=== PATIENT | male | born 1940 | race Caucasian/White ===

== ENCOUNTER → 2016-05-04 | Outpatient (CLI) | payer MEDICARE ==
[2016-05-04 09:30] LABS: BASO % 0.2 %; BASO ABS # 0.02 K/uL (0-0.2); COMPLETE YES; HEMATOCRIT 35.9 % (42-52); IG% 0.3 %; LYMPH % 15.6 %; LYMPH ABS # 1.44 K/uL (1.2-3.4); MEAN CELL VOLUME 87.3 fL (80-100); MEAN CORPUSCULAR HEMOGLOBIN 30.2 pg (25-34); MEAN CORPUSCULAR HGB CONC 34.5 g/dl (32-36); MEAN PLATELET VOLUME 9.2 fL (7.4-10.4); MONO % 11.2 %; NEUT % 71.7 %; PLATELET COUNT 247 K/uL (130-400); RED BLOOD COUNT 4.11 M/uL (4.7-6.1); WHITE BLOOD COUNT 9.21 K/uL (4.8-10.8)
[2016-05-04 09:33] LABS: URINE APPEARANCE CLEAR (CLEAR); URINE BILIRUBIN NEG (NEG); URINE COLOR DK YELLOW; URINE EPITHELIAL CELL AUTO 0-5 /lpf (0-5); URINE NITRITE NEG (NEG); URINE PH 5.5 (4.5-7.5); URINE SPECIFIC GRAVITY 1.019 (1.000-1.030); UROBILINOGEN NEG (NEG)
[2016-05-04 09:37] LABS: MANUAL MICROSCOPIC REQUIRED? NO; REVIEW REQ? NO
[2016-05-04 10:10] LABS: ESTIMATED AVERAGE GLUCOSE 146 mg/dl; HA1C FLAG Normal (Normal)
[2016-05-04 10:19] LABS: ALT/SGPT 28 U/L (12-78); AST/SGOT 24 U/L (15-37); BLOOD UREA NITROGEN 23 mg/dl (7-18); BUN/CREATININE RATIO 19.3 (10-20); CALCIUM 9.8 mg/dl (8.5-10.1); CARBON DIOXIDE 24 mmol/L (21-32); CHLORIDE 100 mmol/L (98-107); CHOLESTEROL 108 mg/dl (0-200); GLUCOSE 96 mg/dl (70-99); POTASSIUM 4.4 mmol/L (3.5-5.1); SODIUM 134 mmol/L (136-145); TRIGLYCERIDES 143 mg/dl (0-150); VERY LOW DENSITY LIPOPROT CALC 29 mg/dl
[2016-05-04 10:35] LABS: HDL CHOLESTEROL 36 mg/dl; LDL CHOLESTEROL CALCULATED 43 mg/dl; URIC ACID 4.6 mg/dl (2.6-7.2)
== END | disposition home or self-care (01) ==
LOC: C.LAB1850 08:51
PROVIDERS: ATTEND Internal Medicine
DX: E11.9 Type 2 diabetes mellitus without complications (principal)

== ENCOUNTER → 2016-08-11 | Outpatient (CLI) | payer MEDICARE ==
[~2016-08-11] MED LIST: ALLO300T2 PO; ASPI-560 PO; ATOR-24 PO; B-COTAB18 PO; DILT-119 PO; EFF/375 PO; GLIP-199 PO; HYDR25TA4 PO; LISI20TA3 PO; METF1000 PO; MULT-506 PO; OMEG10007 PO; PRLSR20 PO; [UNRECOGNIZED DRUG - CODE] SL
[2016-08-11 10:16] LABS: ESTIMATED AVERAGE GLUCOSE 143 mg/dl; HA1C FLAG Normal (Normal)
== END | disposition home or self-care (01) ==
LOC: C.LAB1850 09:15
PROVIDERS: ATTEND Internal Medicine
DX: E11.9 Type 2 diabetes mellitus without complications (principal)

== ENCOUNTER → 2016-08-16 | Outpatient (CLI) | payer MEDICARE ==
--- NOTE | 2016-08-16 15:09 | DIAGNOSTIC IMAGING REPORT ---
CHEST 2 VIEWS ROUTINE CLINICAL HISTORY: E11.9 Type 2 diabetes mellitus dyspnea COMPARISON STUDY: No previous studies for comparison. FINDINGS: Mild cardiomegaly. Minimal infiltrative change right lower lobe. Lungs otherwise appear clear. IMPRESSION: Mild cardiomegaly. Minimal infiltrative change medial aspect right lower lobe versus atelectatic change. Electronically signed by: Chito Foy M.D. 08/16/2016 3:09 PM Dictated Date/Time: 08/16/2016 3:08 PM
== END | disposition home or self-care (01) ==
LOC: C.RAD1850 14:42
PROVIDERS: ATTEND Internal Medicine
DX: E11.9 Type 2 diabetes mellitus without complications (principal)

== ENCOUNTER → 2016-11-03 | Outpatient (CLI) | payer MEDICARE ==
[2016-11-03 09:35] LABS: BASO % 0.3 %; BASO ABS # 0.02 K/uL (0-0.2); COMPLETE YES; EOS % 1.1 %; HEMATOCRIT 35.2 % (42-52); IG% 0.2 %; LYMPH ABS # 1.62 K/uL (1.2-3.4); MEAN CELL VOLUME 90.5 fL (80-100); MEAN CORPUSCULAR HEMOGLOBIN 30.1 pg (25-34); MEAN CORPUSCULAR HGB CONC 33.2 g/dl (32-36); MEAN PLATELET VOLUME 8.9 fL (7.4-10.4); MONO % 11.4 %; PLATELET COUNT 271 K/uL (130-400); RED BLOOD COUNT 3.89 M/uL (4.7-6.1); WHITE BLOOD COUNT 6.48 K/uL (4.8-10.8)
[2016-11-03 09:46] LABS: MANUAL MICROSCOPIC REQUIRED? YES; URINE APPEARANCE CLEAR (CLEAR); URINE BILIRUBIN NEG (NEG); URINE COLOR YELLOW; URINE NITRITE NEG (NEG); UROBILINOGEN NEG (NEG)
[2016-11-03 09:50] LABS: REVIEW REQ? NO
[2016-11-03 09:52] LABS: ESTIMATED AVERAGE GLUCOSE 137 mg/dl; HA1C FLAG Normal (Normal)
[2016-11-03 09:58] LABS: ALT/SGPT 28 U/L (12-78); AST/SGOT 24 U/L (15-37); BLOOD UREA NITROGEN 22 mg/dl (7-18); CALCIUM 9.8 mg/dl (8.5-10.1); CARBON DIOXIDE 26 mmol/L (21-32); CHLORIDE 103 mmol/L (98-107); CHOLESTEROL 98 mg/dl (0-200); GLUCOSE 72 mg/dl (70-99); POTASSIUM 4.4 mmol/L (3.5-5.1); SODIUM 136 mmol/L (136-145); TRIGLYCERIDES 124 mg/dl (0-150); URIC ACID 3.9 mg/dl (2.6-7.2); VERY LOW DENSITY LIPOPROT CALC 25 mg/dl
[2016-11-03 10:09] LABS: CHOLESTEROL/HDL RATIO 2.9; HDL CHOLESTEROL 34 mg/dl; LDL CHOLESTEROL CALCULATED 39 mg/dl
[2016-11-03 10:50] LABS: URINE BACTERIA NEG (NEG); URINE RBC 0-4 /hpf (0-4); URINE WBC 0 /hpf (0-5)
== END | disposition home or self-care (01) ==
LOC: C.LAB1850 08:42
PROVIDERS: ATTEND Internal Medicine
DX: E11.9 Type 2 diabetes mellitus without complications (principal)

== ENCOUNTER → 2016-11-16 | Outpatient (CLI) | payer MEDICARE ==
[2016-11-16 15:43] LABS: HEMATOCRIT 35.4 % (42-52)
[2016-11-16 16:14] LABS: FERRITIN 22.8 ng/ml (8.0-388.0)
--- NOTE | 2016-11-24 09:14 | CODING QUERY MEDICAL NECESSITY ---
SUPPORTING DIAGNOSIS NEEDED A supporting diagnosis is required for the test/procedure performed on this patient in order for us to be reimbursed by the patient's insurance. Please provide a supporting diagnosis for the following test/procedure listed below next to the test name along with your signature. *If there is no additional diagnosis for this patient that would support the following test/procedure please document that below next to the test/procedure. Test(s)/Procedure(s) that require a supporting diagnosis: * VITAMIN B12 DIAGNOSIS: Provider Signature: Date: Thank you Carey Walker [facility] Once completed, please kindly fax back to [phone] For questions please call [phone]
== END | disposition home or self-care (01) ==
LOC: C.LAB1850 14:26
PROVIDERS: ATTEND Internal Medicine
DX: D64.9 Anemia, unspecified (principal)

== ENCOUNTER → 2016-11-22 | Outpatient (CLI) | payer MEDICARE | END | disposition home or self-care (01) | LOC: C.LABSPEC 11-22 15:06 | PROVIDERS: ATTEND Internal Medicine | DX: D64.9 Anemia, unspecified (principal) ==

== ENCOUNTER → 2017-03-08 | Day surgery (SDC) | payer MEDICARE ==
[2017-02-28 15:40] VITALS: Ht 172.7 cm; Wt 81.8 kg
[~2017-03-08] VITALS: Ht 172.7 cm; Wt 81.8 kg
[~2017-03-08] MED LIST changes: +LIDOCAINE HCL 2% 2 ML VIAL (20MG/ML) ONE; +PROPOFOL IV EMULSION 10 MG/ML 20 ML VIAL IV ONE; +SODIUM CHLORIDE 0.9% 500ML 500 ML IV ONE
[2017-03-08 08:38] VITALS: TEMP 36.8
--- NOTE | 2017-03-08 08:51 | Endo History and Physical ---
History & Physical Date of Service: Mar 08, 2017. Chief Complaint: anemia Referring Physician: Rani MCCORMACK History of Present Illness 76 yo CM who presents for colonoscopy secondary to anemia. Past Surgical History Hx Cardiac Surgery: Yes (HEART CATH X 3 (4 STENTS PLACED)) Hx Internal Defibrillator: No Hx Pacemaker: No Hx Abdominal Surgery: No Hx of Implantable Prosthesis: No Hx Post-Op Nausea and Vomiting: No Hx Cancer Surgery: No Hx Thoracic Surgery: No Hx Orthopedic: No Hx Urinary Tract Surgery: No Family History None Social History Smoking Status: Current Every Day Smoker Hx Substance Use: No Hx Alcohol Use: No Allergies Coded Allergies: NO KNOWN DRUG ALLERGIES (Verified Allergy, Unknown, ., 02/28/17) Current Medications Reported Home Medications Medications Dose Route/Sig Max Daily Dose Days Date Category Prilosec (Omeprazole) 20 Mg Capcr 20 Mg PO QPM 02/28/17 Reported Vitamin B Complex (B-Complex Vitamins) 1 Tab Tab 1 Tab PO QAM 02/28/17 Reported Effexor (Venlafaxine Hcl) 37.5 Mg Tab 37.5 Mg PO QAM 02/28/17 Reported Nitromist (Nitroglycerin) 400 Mcg/[place] Aer 1 Dose SL DIRECTED PRN 02/28/17 Reported Glucophage (Metformin Hcl) 1,000 Mg Tab 1,000 Mg PO BID 02/28/17 Reported Prinivil (Lisinopril) 20 Mg Tab 20 Mg PO QAM 02/28/17 Reported Hctz (Hydrochlorothiazide) 25 Mg Tab 25 Mg PO QAM 02/28/17 Reported Glipizide Er (Glipizide) 10 Mg Tab 1 Tab PO BID 02/28/17 Reported [place]-3 (Fish Oil) 1 Ea Cap 1 Cap PO QPM 02/28/17 Reported Ecotrin (Aspirin) 325 Mg Tab 1 Tab PO QAM 02/28/17 Reported Tiazac (Diltiazem HCl) 360 Mg Capcr 360 Mg PO HS 02/28/17 Reported Multivitamin (Multivitamins) Tab 1 Tab PO QAM 02/28/17 Reported Lipitor (Atorvastatin Calcium) 40 Mg Tab 40 Mg PO QAM 02/28/17 Reported Zyloprim (Allopurinol) 300 Mg Tab 300 Mg PO QAM 02/28/17 Reported Vital Signs Weight (Kilograms): 81.82 Height (Feet): 5 Height (Inches): 8 Date Time Temp Pulse Resp B/P (MAP) Pulse Ox O2 Delivery O2 Flow Rate FiO2 03/08/17 08:38 36.8 100 24 163/91 (115) 97 Room Air Physical Exam General Appearance: WD/WN, no apparent distress Respiratory/Chest: Auscultation: breath sounds normal Cardiovascular: Heart Auscultation: RRR Abdomen: Bowel Sounds: normal Inspection & Palpation: soft, non-distended, no tenderness, guarding & rebound Assessment and Plan Assessment: 76 yo CM who presents for colonoscopy secondary to anemia. Plan: Proceed with colonoscopy.
--- NOTE | 2017-03-08 09:41 | Discharge Instructions ---
Endoscopy Patient Instructions Date / Procedure(s) Performed Mar 08, 2017. Colonoscopy Allergy Information Coded Allergies: NO KNOWN DRUG ALLERGIES (Verified Allergy, Unknown, ., 02/28/17) Discharge Date / Findings Mar 08, 2017. Diverticulosis Internal hemorrhoids Medication Instructions Stopped Medication(s): stopped Metformin on Tuesday,took ASA yesterday OK to resume all medications today as prescribed Reported Home Medications Medications Dose Route/Sig Max Daily Dose Days Date Category Prilosec (Omeprazole) 20 Mg Capcr 20 Mg PO QPM 02/28/17 Reported Vitamin B Complex (B-Complex Vitamins) 1 Tab Tab 1 Tab PO QAM 02/28/17 Reported Effexor (Venlafaxine Hcl) 37.5 Mg Tab 37.5 Mg PO QAM 02/28/17 Reported Nitromist (Nitroglycerin) 400 Mcg/[place] Aer 1 Dose SL DIRECTED PRN 02/28/17 Reported Glucophage (Metformin Hcl) 1,000 Mg Tab 1,000 Mg PO BID 02/28/17 Reported Prinivil (Lisinopril) 20 Mg Tab 20 Mg PO QAM 02/28/17 Reported Hctz (Hydrochlorothiazide) 25 Mg Tab 25 Mg PO QAM 02/28/17 Reported Glipizide Er (Glipizide) 10 Mg Tab 1 Tab PO BID 02/28/17 Reported [place]-3 (Fish Oil) 1 Ea Cap 1 Cap PO QPM 02/28/17 Reported Ecotrin (Aspirin) 325 Mg Tab 1 Tab PO QAM 02/28/17 Reported Tiazac (Diltiazem HCl) 360 Mg Capcr 360 Mg PO HS 02/28/17 Reported Multivitamin (Multivitamins) Tab 1 Tab PO QAM 02/28/17 Reported Lipitor (Atorvastatin Calcium) 40 Mg Tab 40 Mg PO QAM 02/28/17 Reported Zyloprim (Allopurinol) 300 Mg Tab 300 Mg PO QAM 02/28/17 Reported Provider Instructions Activity Restrictions - No exercising or heavy lifting for 24 hours. - Do not drink alcohol the day of the procedure. - Do not drive a car or operate machinery until the day after the procedure. - Do not make any important decisions or sign important papers in 24 hours after the procedure. Following Day: - Return to full activity which may include returning to work/school. Diet Start your diet with liquids and light foods (jello, soup, juice, toast). Then eat your usual diet if not nauseated. Treatment For Common After Affects For mild abdominal pain, bloating, or excessive gas: - Rest - Eat lightly - Lie on right side Follow-Up Information Follow-up with Rani MCCORMACK as scheduled Anesthesia Information What You Should Know You have had a procedure that required some medicine to reduce anxiety and discomfort. This treatment is called moderate sedation. After receiving the treatment, you may be sleepy, but you will be able to breathe on your own. The effects of the treatment may last for several hours. Follow these instructions along with Activity/Diet recommendations noted above: * Do NOT do anything where dizziness or clumsiness would be dangerous. * Rest quietly at home today, then you can be up and about tomorrow. * Have a responsible person stay with you the rest of today. * You may have had an I.V. today. If so, you may take the dressing off later today. Recommendations Call your doctor if: * Trouble breathing * Continuous vomiting for more than 24 hours * Temperature above 101 degrees * Severe abdominal pain or bloating * Pain not relieved by pain medicine ordered * There is increased drainage or redness from any incision * A large amount of rectal bleeding greater than 2-3 tablespoons. (If you had a polyp/s removed or have hemorrhoids, a small amount of blood - from the rectum is to be expected.) * You have any unanswered questions or concerns. IN THE EVENT OF A SERIOUS EMERGENCY, GO TO THE NEAREST EMERGENCY ROOM Your discharge instructions were prepared by provider Flex Hayes. Patient Instructions Signature Page Arvid High Patient (or Guardian) Signature/Date: I have read and understand the instructions given to me by my caregivers. Caregiver/RN/Doctor Signature/Date: The above-named patient and/or guardian has received patient instructions on this date. + Original Patient Signature Page (only) stays with chart. Please make copy for patient.
--- NOTE | 2017-03-08 09:45 | GI REPORT ---
Procedure Date: 03/08/2017 9:07 AM Procedure: Colonoscopy Indications: Iron deficiency anemia Medicines: Monitored Anesthesia Care Complications: No immediate complications. Estimated Blood Loss: Estimated blood loss: none. Procedure: Pre-Anesthesia Assessment: - Prior to the procedure, a History and Physical was performed, and patient medications and allergies were reviewed. The patient's tolerance of previous anesthesia was also reviewed. The risks and benefits of the procedure and the sedation options and risks were discussed with the patient. All questions were answered, and informed consent was obtained. Prior Anticoagulants: The patient has taken aspirin, last dose was 1 day prior to procedure. ASA Grade Assessment: III - A patient with severe systemic disease. After reviewing the risks and benefits, the patient was deemed in satisfactory condition to undergo the procedure. After I obtained informed consent, the scope was passed under direct vision. Throughout the procedure, the patient's blood pressure, pulse, and oxygen saturations were monitored continuously. The scope was introduced through the anus and advanced to the terminal ileum. The colonoscopy was performed without difficulty. The patient tolerated the procedure well. The quality of the bowel preparation was good. The terminal ileum, ileocecal valve, appendiceal orifice, and rectum were photographed. Findings: The perianal and digital rectal examinations were normal. Multiple small-mouthed diverticula were found in the sigmoid colon. Non-bleeding internal hemorrhoids were found during retroflexion. The hemorrhoids were small. Impression: - Diverticulosis in the sigmoid colon. - Non-bleeding internal hemorrhoids. - No specimens collected. Recommendation: - Resume previous diet. - Continue present medications. - No repeat colonoscopy due to age and the absence of advanced adenomas. - Return to primary care physician as previously scheduled. Flex Hayes DO 03/08/2017 9:45:07 AM This report has been signed electronically. Note Initiated On: 03/08/2017 9:07 AM I attest to the content of the Intraoperative Record and orders documented therein, exceptions below
[2017-03-08 10:02] VITALS: BP 158/81; PULSE 88; O2SAT 96
--- NOTE | 2017-03-08 10:02 | Anesthesiology Progress Note ---
Anesthesia Post Op Note Date & Time Mar 08, 2017 at 10:02 Vital Signs Pain Intensity: 0 Vital Signs Past 12 Hours Date Time Temp Pulse Resp B/P (MAP) Pulse Ox O2 Delivery O2 Flow Rate FiO2 03/08/17 09:50 173/89 (117) 03/08/17 09:48 110 20 160/110 (127) 97 Room Air 03/08/17 08:38 36.8 100 24 163/91 (115) 97 Room Air Notes Mental Status: alert / awake / arousable, participated in evaluation Pt Amnestic to Procedure: Yes Nausea / Vomiting: adequately controlled Pain: adequately controlled Airway Patency, RR, SpO2: stable & adequate BP & HR: stable & adequate Hydration State: stable & adequate Anesthetic Complications: no major complications apparent
== END | disposition home or self-care (01) ==
LOC: C.GI 08:06
PROVIDERS: ATTEND Internal Medicine
DX: K57.30 Diverticulosis of large intestine without perforation or abscess without bleeding (principal); K64.8 Other hemorrhoids; D50.9 Iron deficiency anemia, unspecified; F17.200 Nicotine dependence, unspecified, uncomplicated; Z79.84 Long term (current) use of oral hypoglycemic drugs; Z79.899 Other long term (current) drug therapy; Z95.5 Presence of coronary angioplasty implant and graft

== ENCOUNTER → 2017-04-28 | Outpatient (CLI) | payer MEDICARE ==
[~2017-04-28] MED LIST changes: -LIDOCAINE HCL 2% 2 ML VIAL (20MG/ML) ONE; -PROPOFOL IV EMULSION 10 MG/ML 20 ML VIAL IV ONE; -SODIUM CHLORIDE 0.9% 500ML 500 ML IV ONE
[2017-04-28 16:41] LABS: BASO % 0.3 %; BASO ABS # 0.02 K/uL (0-0.2); EOS % 1.2 %; EOS ABS # 0.08 K/uL (0-0.5); HEMATOCRIT 33.9 % (42-52); HEMOGLOBIN 11.3 g/dL (14.0-18.0); IG# 0.02 K/uL (0.00-0.02); LYMPH % 30.1 %; LYMPH ABS # 2.07 K/uL (1.2-3.4); MEAN CELL VOLUME 90.6 fL (80-100); MEAN CORPUSCULAR HEMOGLOBIN 30.2 pg (25-34); MEAN CORPUSCULAR HGB CONC 33.3 g/dl (32-36); MEAN PLATELET VOLUME 9.8 fL (7.4-10.4); MONO % 11.2 %; MONO ABS # 0.77 K/uL (0.11-0.59); NEUT % 56.9 %; NEUT ABS # 3.92 K/uL (1.4-6.5); PLATELET COUNT 249 K/uL (130-400); RED CELL DISTRIBUTION WIDTH CV 14.8 % (11.5-14.5); RED CELL DISTRIBUTION WIDTH SD 48.9 fL (36.4-46.3); WHITE BLOOD COUNT 6.88 K/uL (4.8-10.8)
[2017-04-28 17:05] LABS: BLOOD UREA NITROGEN 25 mg/dl (7-18); CALCIUM 9.2 mg/dl (8.5-10.1); CARBON DIOXIDE 25 mmol/L (21-32); CREATININE 1.29 mg/dl (0.60-1.40); GLUCOSE 163 mg/dl (70-99); SODIUM 134 mmol/L (136-145)
[2017-04-29 07:25] LABS: HEMOGLOBIN A1C 6.7 % (4.5-5.6)
== END | disposition home or self-care (01) ==
LOC: C.LAB1850 15:26
PROVIDERS: ATTEND Internal Medicine
DX: E11.9 Type 2 diabetes mellitus without complications (principal); I25.10 Atherosclerotic heart disease of native coronary artery without angina pectoris; D64.9 Anemia, unspecified

== ENCOUNTER → 2017-05-23 | Outpatient (CLI) | payer MEDICARE ==
[~2017-05-23] MED LIST changes: +IMDSR30 PO
--- NOTE | 2017-05-23 13:32 | DIAGNOSTIC IMAGING REPORT ---
TWO VIEW CHEST CLINICAL HISTORY: Exertional dyspnea. FINDINGS: PA and lateral chest radiographs are compared to study dated 08/16/2016. The heart is enlarged and there is atherosclerotic calcification of the thoracic aorta. The pulmonary vasculature is noncongested. There is mild chronic elevation of the right hemidiaphragm and bibasilar atelectasis. No airspace consolidation or pleural effusion is identified. There is no pneumothorax. The skeletal structures are osteopenic. The bony thorax appears intact. IMPRESSION: Cardiomegaly with no acute cardiopulmonary abnormality. Electronically signed by: Lorenzo Whitehead M.D. 05/23/2017 1:31 PM Dictated Date/Time: 05/23/2017 1:29 PM
== END | disposition home or self-care (01) ==
LOC: C.RAD1850 13:15
PROVIDERS: ATTEND Physician Assistant
DX: R06.02 Shortness of breath (principal); I51.7 Cardiomegaly

== ENCOUNTER → 2017-05-30 | Day surgery (SDC) | payer MEDICARE ==
[~2017-05-30] VITALS: Ht 172.7 cm; Wt 80.0 kg
[~2017-05-30] MED LIST changes: +FENTANYL CITRATE INJ 50 MCG/1 ML 2 ML VIAL ONE; +HEPARIN SOD (PORCINE) 1000 UNIT/ML 10 ML VIAL ONE; +MIDAZOLAM HCL 1 MG/ML 2ML VIAL ONE; +NITROGLYCERIN/D5W 100MCG/ML 20ML SYR ONE; +NiCARDipine HCL INJ 2.5 MG/ML 10 ML AMP ONE
[2017-05-30 07:20] VITALS: BP 169/75; PULSE 78; TEMP 36.8; O2SAT 98; Ht 172.7 cm; Wt 80.0 kg
--- NOTE | 2017-05-30 07:45 | History & Physical Bridge Note ---
H&P Re-Evaluation Bridge Note: I have examined the patient, reviewed the History & Physical and in the interval since the performance of the History & Physical I have noted the following changes of clinical significance: No changes noted
--- NOTE | 2017-05-30 07:47 | Pre Sedation Assessment ---
Pre Sedation Assessment General Date of Sedation: May 30, 2017. Vital Signs Past 12 Hours Date Time Temp Pulse Resp B/P (MAP) Pulse Ox O2 Delivery O2 Flow Rate FiO2 05/30/17 07:20 36.8 78 16 169/75 (106) 98 Room Air Review Cardiovascular: regular rate, rhythm, no edema Lungs: chest non-tender, lungs clear Pre-Sedation Airway Assessment Smoking Status: Current Every Day Smoker Hx of Sleep Apnea: No Hx of difficult intubation: No Short Thick Neck: No Thyro-mental Distance: > 3 Finger Breadths Oral Cavity: WNL Mallampati Classification: Class III ASA Classification: Class III NPO Status Date of Last Intake of Fluids: May 29, 2017 Date of Last Intake of Solids: May 29, 2017 Procedure Planning Contraindications for Sedation: None Current Medications Reviewed: Yes Notes The planned sedation has been discussed with the patient. Informed Consent was obtained. I have identified the patient, determined the appropriateness of sedation and have assessed the patient immediately prior to the procedure. All medicine(s) and interventions are by my order.
--- NOTE | 2017-05-30 08:32 | Post Sedation Assessment ---
Post Sedation Assessment General Date of Sedation May 30, 2017. Vital Signs: Vital Signs Past 12 Hours Date Time Temp Pulse Resp B/P (MAP) Pulse Ox O2 Delivery O2 Flow Rate FiO2 05/30/17 07:20 36.8 78 16 169/75 (106) 98 Room Air Post Procedure Recovery Score Activity: (2) Moves 4 extremities * Respiration: (2) Deep breath/cough Circulation: (2) +/-20% PreAnes Value Consciousness: (2) Fully Awake Oxygen Saturation: (2) > 92% On Room Air Post Anesthesia Score: 10 Discharge Sedation Level of Care: Fast Track Phase II Post Sedation Plan On clinical assessment, the patient appears to have tolerated the sedation without complications. Patient is recovering as anticipated. Patient will continue to be monitored by nursing and may be discharged when sedation discharge criteria are met per below protocol. Upon Completions of procedure and additional 15 minutes continue every 5 minute vital signs and the P.A.R. score; then discharge to a Phase I or Fast Track to Phase II per the following guidelines: * Discharge Patient to appropriate Phase II area if PAR is 8 or greater or return to pre- procedure baseline. The post - procedure orders will be as directed. * If PAR score is less than 8 or not return to pre-procedure baseline then patient will follow Phase I monitoring till PAR is reached for Phase II. The Phase I may be done in procedure room or may call to secure a Phase I area. * If naloxone or flumazenil are used for reversal, hold in Phase I for an additional 60 -120 minutes before discharge to Phase II. Please call the Sedation Physician to re-evaluate and complete post-note for discharge to Phase II area. Do NOT discharge from procedure sedation or Phase 1 until post- sedation evaluation note is complete by procedure /sedation MD Sedation Discharge Instructions to be given to the patient at discharge to home.
--- NOTE | 2017-05-30 09:32 | Cardiac Catheterization ---
Procedure Note Procedure Date May 30, 2017. Pre-Procedure Diagnosis Angina AUC Score 7 Post-Procedure Diagnosis Severe CAD, Normal Intracardiac Pressures Procedure(s) Performed Coronary Angiography, Left Heart Cath [employer] Coordinator(s) Manjindert Estimated Blood Loss 10 Medication(s) Fentanyl, Heparin, Nitroglycerin, Versed, Lidocaine 1% Summary of Findings Indication: Angina Access: 6Fr slender right radial artery Catheters: [place], Pigtail Findings: LM - Calcified, luminal irregularities LAD - Heavily calcified proximally, mid 30-40% diffuse disease; late-mid stent with 90% in-stent restenosis; apical segment luminal irregularities. Left to right septal collaterals to PDA. - moderate caliber 2nd diagonal with 20-30% ostial stenosis, widely patent proximal stent Circumflex - Moderate caliber, 20-30% ostial stenosis, mid to distal luminal irregularities. Gives of moderate caliber OM1 with minimal disease. Distal vessel gives off few epicardial collaterals to R-PLB. RCA - Dominant, heavily calcified, 99% late-proximal stenosis; 50% diffuse mid segment disease; competitive flow in distal segment LVEDP - 10 Arterial Closure: TR band Summary: 1. Severe 2 vessel coronary artery disease - 99% late-proximal stenosis; competitive flow in distal vessel from left to right collaterals - 90% late-mid LAD in-stent restenosis 2. Normal intracardiac filling pressure Recommendations: Currently only on 1 antianginal --> recommend maximizing anti-anginal therapy Start long acting nitrate Continued ASCVD risk factor modification Follow-up with cardiology in 2-3 weeks. 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
--- NOTE | 2017-05-30 09:36 | Discharge Instructions ---
Discharge Instructions Procedure Procedure Date: May 30, 2017. Reason for Visit: Sob Dr Chambers Doing. Discharge Discharge Date: May 30, 2017. Discharge Diagnosis: Coronary artery disease Last Recorded Wt (Kilograms): 80 Anesthesia Post Anesthesia Instructions: If you have had General Anesthesia or IV Sedation: * Do not drive today. * Resume driving when surgeon permits. * Do not make important decisions or sign legal documents today. * Call surgeon for: 1. Temperature elevations greater than 101 degrees F. 2. Uncontrollable pain. 3. Excessive bleeding. 4. Persistent nausea and vomiting. 5. Medication intolerance (nausea, vomiting or rash). * For nausea and vomiting use only clear liquids such as: tea, soda, bouillon until nausea subsides, then gradually increase diet as tolerated. * If you have any concerns or questions, call your surgeon's office. If physician is unavailable and it is an emergency, call 911 or go to the nearest emergency room. Instructions Activity Recommendations: limitations as noted below Recommended Home Diet: low sodium, low cholesterol Allergies: Coded Allergies: NO KNOWN DRUG ALLERGIES (Verified Allergy, Unknown, ., 02/28/17) Follow Up Additional Instructions: ACTIVITY RECOMMENDATIONS: Excess manipulation of the wrist should be avoided for the next 24-48 hours. * No lifting over 2 pounds (approximately a 1/2 gallon of milk) with the utilized arm for 24 hours. * No strenuous activity such as bowling or tennis for 3 days. * Keep the site of the procedure covered with a bandage for 24 hours. *You may shower the day after the procedure. Do not take a tub bath or submerge the puncture site in water for the next 3 days. *Do not operate any motorized equipment for 3 days. SPECIAL CARE INSTRUCTIONS: The site may be slightly bruised and sore following your procedure. Should any of the following occur, contact the Dr. who performed your procedure. 1. Redness/inflammation, swelling, chills, or fever, or colored drainage at procedure site within 3-7 days after your procedure. 2. Coldness, discoloration, ongoing numbness, severe pain, or swelling. Expect mild tingling of hand and tenderness at the puncture site for up to three days. If this persists beyond three days, or other symptoms develop, notify the Dr. who performed your procedure. BLEEDING: If the procedure site on your wrist begins to bleed, do not panic 1. Place 1 or 2 fingers firmly just slightly above the insertion site to stop the bleeding. You may be able to feel your pulse as you hold pressure. 2. Lift your finger after 5 minutes to see if the bleeding has stopped. 3. Once the bleeding has stopped, gently wipe the wrist area clean with a bandage. * If the bleeding from your wrist does not stop after 10 minutes, or if there is a large amount of bleeding or spurting, call 911 (do not drive yourself to the hospital). SKIN IRRITATION: * You may experience some redness and/or swelling in the area where radiation was administered. If any skin irritation occurs, please contact your family physician. FOLLOW UP VISIT: Keep any scheduled doctor appointments. Follow-up with: Cardiology in 2-3 weeks Jeannine Figueroa Recommendations: Call your doctor if: * Temperature above 101 degrees * Pain not relieved by pain medicine ordered * There is increased drainage or redness from any incision * You have any unanswered questions or concerns. Your Doctors Instructions noted above were prepared by provider Ian Chambers. Patient Signature Section: Patient Instructions Signature Page Arvid High Patient (or Guardian) Signature/Date: I have read and understand the instructions given to me by my caregivers. Caregiver/RN/Doctor Signature/Date: The above-named patient and/or guardian has received patient instructions on this date. + Original Patient Signature Page (only) stays with chart. Please make copy for patient.
[2017-05-30 10:45] VITALS: BP 142/80; PULSE 67; O2SAT 95
== END | disposition home or self-care (01) ==
LOC: C.CATH 07:02
PROVIDERS: ATTEND Internal Medicine Interventional Cardiology
DX: I25.119 Atherosclerotic heart disease of native coronary artery with unspecified angina pectoris (principal); I10 Essential (primary) hypertension; E78.00 Pure hypercholesterolemia, unspecified; Z95.5 Presence of coronary angioplasty implant and graft; E11.9 Type 2 diabetes mellitus without complications; K21.9 Gastro-esophageal reflux disease without esophagitis; G47.33 Obstructive sleep apnea (adult) (pediatric); M10.9 Gout, unspecified; Z88.8 Allergy status to other drugs, medicaments and biological substances; Z86.19 Personal history of other infectious and parasitic diseases; Z87.891 Personal history of nicotine dependence; Z79.4 Long term (current) use of insulin; Z79.899 Other long term (current) drug therapy

== ENCOUNTER → 2017-09-01 | Outpatient (CLI) | payer OTHER, MEDICARE ==
[~2017-09-01] MED LIST changes: -FENTANYL CITRATE INJ 50 MCG/1 ML 2 ML VIAL ONE; -HEPARIN SOD (PORCINE) 1000 UNIT/ML 10 ML VIAL ONE; -MIDAZOLAM HCL 1 MG/ML 2ML VIAL ONE; -NITROGLYCERIN/D5W 100MCG/ML 20ML SYR ONE; -NiCARDipine HCL INJ 2.5 MG/ML 10 ML AMP ONE
--- NOTE | 2017-09-01 15:52 | DIAGNOSTIC IMAGING REPORT ---
L FOOT MIN 3 VIEWS ROUTINE CLINICAL HISTORY: 77 years-old Male presenting with M79.672 Left foot [id number]. TECHNIQUE: Frontal, oblique, and lateral views of the left foot were obtained. COMPARISON: None. FINDINGS: Mild joint space loss, minimal osteophytosis, and subchondral sclerosis evident at the first metatarsophalangeal joint. No acute fracture or malalignment. No other sites of degenerative change. No radiographic soft tissue abnormality. IMPRESSION: 1. Mild degenerative changes at the first MTP joint. 2. No acute osseous injury. Electronically signed by: Connor Loredo M.D. 09/01/2017 3:51 PM Dictated Date/Time: 09/01/2017 3:50 PM
== END | disposition home or self-care (01) ==
LOC: C.RAD1850 15:32
PROVIDERS: ATTEND Physician Assistant
DX: M79.672 Pain in left foot (principal)

== ENCOUNTER → 2017-12-01 | Outpatient (CLI) | payer MEDICARE ==
[~2017-12-01] MED LIST changes: +[UNRECOGNIZED DRUG - CODE] SL; -[UNRECOGNIZED DRUG - CODE] SL
[2017-12-01 16:35] LABS: HEMATOCRIT 32.8 % (42-52); HEMOGLOBIN 10.4 g/dL (14.0-18.0); MEAN CORPUSCULAR HEMOGLOBIN 27.6 pg (25-34); MEAN CORPUSCULAR HGB CONC 31.7 g/dl (32-36); PLATELET COUNT 220 K/uL (130-400); RED CELL DISTRIBUTION WIDTH CV 17.2 % (11.5-14.5); RED CELL DISTRIBUTION WIDTH SD 54.5 fL (36.4-46.3)
[2017-12-01 16:36] LABS: BASO % 0.3 %; BASO ABS # 0.02 K/uL (0-0.2); EOS % 0.8 %; EOS ABS # 0.05 K/uL (0-0.5); IG# 0.01 K/uL (0.00-0.02); LYMPH % 35.2 %; LYMPH ABS # 2.18 K/uL (1.2-3.4); MEAN PLATELET VOLUME 9.7 fL (7.4-10.4); MONO % 9.7 %; NEUT % 53.8 %; NEUT ABS # 3.34 K/uL (1.4-6.5)
[2017-12-01 17:00] LABS: ALBUMIN 3.2 gm/dl (3.4-5.0); ALKALINE PHOSPHATASE 120 U/L (45-117); ALT/SGPT 26 U/L (12-78); AST/SGOT 33 U/L (15-37); BLOOD UREA NITROGEN 28 mg/dl (7-18); CALCIUM 8.9 mg/dl (8.5-10.1); CARBON DIOXIDE 24 mmol/L (21-32); CREATININE 1.55 mg/dl (0.60-1.40); GLUCOSE 96 mg/dl (70-99); POTASSIUM 4.7 mmol/L (3.5-5.1); SODIUM 136 mmol/L (136-145); URIC ACID 4.8 mg/dl (2.6-7.2)
== END | disposition home or self-care (01) ==
LOC: C.LAB1850 15:36
PROVIDERS: ATTEND Internal Medicine
DX: M25.50 Pain in unspecified joint (principal); I25.5 Ischemic cardiomyopathy; E11.9 Type 2 diabetes mellitus without complications; E78.00 Pure hypercholesterolemia, unspecified; I10 Essential (primary) hypertension